=== PATIENT | female | born 1965 | race Caucasian/White ===

== ENCOUNTER 2017-02-14 12:38 | Emergency (ER) | payer OTHER ==
[2017-02-14 12:59] VITALS: TEMP 98.2; BMI 37.0
[2017-02-14] MEDS ORDERED: ALBUTEROL SO4 2.5/IPRATROPIUM 0.5 INH SOL 3 ML VIAL.NEB. NEB ONE ×2 (13:18→13:30)
[2017-02-14] MEDS ORDERED: morphine CARPU-JECT 4 MG/1 ML DISP.SYRIN IVPUSH ONE ×2 (13:24→16:08)
--- NOTE | 2017-02-14 13:24 | PDOC ---
History of Present Illness - General History Source: Patient Exam Limitations: No Limitations - History of Present Illness Initial Comments: 02/14/17 13:39 The patient is a 51-year-old female, with a significant past medical history DVT (left leg) and several abdominal surgeries, who presents to the ED pleuritic chest pain and cough. Pts chest pain radiates to her back and is worsened with deep inspiration. Pts cough is productive of yellow sputum. Patient reports that she recently got back from [place] yesterday (4-hour flight) and is experiencing nausea and subjective fever. Patient denies any chills, vomiting, diarrhea, or abdominal pain. Surgical Hx: cholecystectomy, appendectomy. <Felicia Lui - Last Filed: 02/14/17 13:39> <Leny Jones - Last Filed: 02/14/17 19:54> - General Chief Complaint: Pain Stated Complaint: CHEST PAIN, SOB Time Seen by Provider: 02/14/17 13:04 Past History <Felicia Lui - Last Filed: 02/14/17 13:39> - Past Medical History Other medical history: FIBROMYALGIA - Surgical History Appendectomy: Yes Cardiac Surgery: Yes Cholecystectomy: Yes - Psycho/Social/Smoking Cessation Hx Anxiety: No Suicidal Ideation: No Smoking History: Current every day smoker Number of Cigarettes Smoked Daily: 7 Information on smoking cessation initiated: No Hx Alcohol Use: Yes (SOCIAL) Drug/Substance Use Hx: No Substance Use Type: None <Leny Jones - Last Filed: 02/14/17 19:54> - Past Medical History Allergies/Adverse Reactions: Allergies Allergy/AdvReac Type Severity Reaction Status Date / Time No Known Allergies Allergy Verified 02/14/17 12:59 Home Medications: Ambulatory Orders Gabapentin 1,200 mg PO TID 02/14/17 Review of Systems - Review of Systems Able to Perform ROS?: Yes Comments:: 02/14/17 13:40 GENERAL/CONSTITUTIONAL: No chills. No weakness. +fever HEAD, EYES, EARS, NOSE AND THROAT: No change in vision. No ear pain or discharge. No sore throat. CARDIOVASCULAR: +shortness of breath, chest pain RESPIRATORY: No wheezing, or hemoptysis. +productive cough SKIN: No rash GASTROINTESTINAL: No vomiting, diarrhea or constipation. +nausea GENITOURINARY: No dysuria, frequency, or change in urination. MUSCULOSKELETAL: No joint or muscle swelling or pain. No neck pain. +back pain NEUROLOGIC: No headache, vertigo, loss of consciousness, or change in strength/ sensation. ENDOCRINE: No increased thirst. No abnormal weight change. HEMATOLOGIC/LYMPHATIC: No anemia, easy bleeding, or history of blood clots. ALLERGIC/IMMUNOLOGIC: No hives or skin allergy. <HuFelicia - Last Filed: 02/14/17 13:39> *Physical Exam - Vital Signs Last Vital Signs Temp Pulse Resp BP Pulse Ox 98.2 F 64 20 126/78 100 02/14/17 12:55 02/14/17 12:55 02/14/17 12:55 02/14/17 12:55 02/14/17 12:55 - Physical Exam Comments: 02/14/17 13:42 GENERAL: Awake, +appears uncomfortable. HEAD: No signs of trauma ENT: Auricles normal inspection, hearing grossly normal, nares patent, oropharynx clear EYES: PERRLA, EOMI, sclera anicteric, conjunctiva clear without exudates. Moist mucosa. NECK: Normal ROM, supple, no lymphadenopathy, JVD, or masses LUNGS: Breath sounds equal, clear to auscultation bilaterally. No wheezes, and no crackles HEART: Regular rate and rhythm, normal S1 and S2, no murmurs, rubs or gallops ABDOMEN: Soft, nontender, normoactive bowel sounds. No guarding, no rebound. No masses EXTREMITIES: Normal range of motion, no edema. No clubbing or cyanosis. No cords, erythema, or tenderness NEUROLOGICAL: Cranial nerves II through XII grossly intact. SKIN: Warm, Dry, normal turgor, no rashes or lesions noted <Felicia Lui - Last Filed: 02/14/17 13:39> - Vital Signs Last Vital Signs Temp Pulse Resp BP Pulse Ox 98.2 F 64 20 126/78 100 02/14/17 12:55 02/14/17 12:55 02/14/17 12:55 02/14/17 12:55 02/14/17 12:55 <Leny Jones - Last Filed: 02/14/17 19:54> ED Treatment Course - Medications Given in the ED: ED Medications Discontinued Medications Generic Name Dose Route Start Last Admin Trade Name Freq PRN Reason Stop Dose Admin Albuterol/Ipratropium 1 amp 02/14/17 13:18 02/14/17 13:34 Duoneb - NEB 02/14/17 13:19 1 amp ONCE ONE Administration Morphine Sulfate 4 mg 02/14/17 13:24 02/14/17 13:34 Morphine Injection - IVPUSH 02/14/17 13:25 4 mg ONCE ONE Administration <Felicia Lui - Last Filed: 02/14/17 13:39> - LABORATORY CBC & Chemistry Diagram: 02/14/17 14:25 02/14/17 14:25 - RADIOLOGY Radiology Studies Ordered: Category Date Time Status CHEST PA & LAT [RAD] Stat Radiology 02/14/17 13:18 Ordered <Leny Jones - Last Filed: 02/14/17 19:54> Medical Decision Making - Medical Decision Making 02/14/17 13:19 51 yo F smoker, several abd surgeries here with c/o pleuritic chest pain, has had productive cough yellow phlegm, no fever or chills. pain worse with inspiration. does have nausea. and bilateral leg swelling. does h/o DVT left leg many years ago after procedure. no longer taking blood thinners. did also have recent air travel to [place] ( 4 hours) . subjective fevers. no abd pain. started 4 days ago. prior surgeries: cholecystectomy, appendectomy. on exam awake alert, uncomfortable, lung decreased bs on expiration. no wheezing no crackles. cardiac RRR no m/r/g. abd soft NT. ext no edema, no calf tenderness. plan : differential pna, pe, , bronchitis, ptx, plan cxr neb. pain control. [facility] ct chest r/o pe. labs. ekg 02/14/17 19:51 pt cta negative. cxr negative. ua pending. pt trop and ekg unremarkable. offeered tele observation for further cardiac workup. would like to go home and follow up wtih her pcp for outpt stress. can not remember name of her doctor to call. dc to home. recommend aspiring daily and return for worsening sxs. <Leny Jones - Last Filed: 02/14/17 19:54> *DC/Admit/Observation/Transfer - Attestations Scribe Attestion: 02/14/17 14:30 Documentation prepared by Felicia Lui, acting as medical transcriptionist for Leny Jones MD. <Felicia Lui - Last Filed: 02/14/17 13:39> - Discharge Dispostion Admit: No <Leny Jones - Last Filed: 02/14/17 19:54> Diagnosis at time of Disposition: Bronchitis - Discharge Dispostion Disposition: HOME Condition at time of disposition: Improved - Referrals Referrals: Chantelle Phan MD [Primary Care Provider] - - Patient Instructions Printed Discharge Instructions: Acute Bronchitis, DI for Atypical Chest Pain Additional Instructions: use albuterol inhaler 2 puffs every 4 hours as needed for cough, wheezing. take ibuprofen 400 mg every 8 hours as needed for pain. you should follow up with your regular doctor for oupatient stress test. return for any problems or concerns.
[2017-02-14] MEDS ORDERED: morphine CARPU-JECT 4 MG/1 ML DISP.SYRIN ONE ×2 (13:30→16:02)
[2017-02-14 14:39] LABS: BASOPHIL 0.6 % (0-2.0); EOSINOPHIL 2.4 % (0-4.5); MCH 31.5 pg (25.7-33.7); MCHC 33.3 g/dl (32.0-36.0); MEAN CELL VOLUME 94.7 fl (80-96); MEAN PLT VOLUME 9.4 fl (7.5-11.1); NEUTROPHILS 47.2 % (42.8-82.8); PLATELET COUNT 241 K/MM3 (134-434); RDW 14.7 % (11.6-15.6); WHITE BLOOD COUNT 7.2 K/mm3 (4.0-10.0)
[2017-02-14 14:51] LABS: INR 0.93 (0.82-1.09); PROTHROMBIN TIME (PATIENT) 10.2 SEC (9.98-11.88)
[2017-02-14 14:54] LABS: ACTIVATED PTT 36.9 SECONDS (26.9-34.4)
[2017-02-14 15:28] LABS: ALBUMIN 3.8 g/dl (3.4-5.0); ANION GAP 8 (8-16); CALCIUM 9.7 mg/dL (8.5-10.1); CO2 27 mmol/L (21-32); COCKROFT - GAULT 102.6205; CREATININE 0.9 mg/dL (0.55-1.02); GLUCOSE,RANDOM 86 mg/dL (74-106); SGOT/AST 21 U/L (15-37); SGPT/ALT 27 U/L (12-78)
[2017-02-14 15:29] LABS: ALK PHOS 72 U/L (45-117); BILIRUBIN,TOTAL 0.6 mg/dL (0.2-1.0); TOT PROT 7.3 g/dl (6.4-8.2)
[2017-02-14] MEDS ORDERED: KETOROLAC TROMETHAMINE 30 MG/1 ML VIAL IVPUSH ONE (19:56)
[2017-02-14] MEDS ORDERED: KETOROLAC TROMETHAMINE 30 MG/1 ML VIAL ONE (20:11)
[2017-02-14 20:36] VITALS: BP 118/65; PULSE 60
--- NOTE | 2017-02-15 10:35 | EKG ---
Test Reason : Blood Pressure : / mmHG Vent. Rate : 053 BPM Atrial Rate : 053 BPM P-R Int : 118 ms QRS Dur : 082 ms QT Int : 408 ms P-R-T Axes : 034 066 052 degrees QTc Int : 382 ms SINUS BRADYCARDIA OTHERWISE NORMAL ECG NO PREVIOUS ECGS AVAILABLE Confirmed by MATTIE MALONEY MD ([id number]) on 02/15/2017 10:34:44 AM Referred By: Confirmed By:MATTIE MALONEY MD
== END 2017-02-14 20:38 | disposition home or self-care (01) ==
LOC: JER 12:38
PROC: 3E0F7GC Introduction of Other Therapeutic Substance into Respiratory Tract, Via Natural or Artificial Opening (ICD-10-PCS; principal; 2017-02-14)
PROC: 3E033NZ Introduction of Analgesics, Hypnotics, Sedatives into Peripheral Vein, Percutaneous Approach (ICD-10-PCS; 2017-02-14)
DX: J40 Bronchitis, not specified as acute or chronic (principal); Z86.718 Personal history of other venous thrombosis and embolism
CPT/HCPCS: 36415; 71010-TC; 71275-TC; 80053; 83690; 85025; 85610; 85730; 93005; 93010; 99285-25